=== PATIENT | male | born 1995 | race Caucasian/White ===

== ENCOUNTER 2021-09-19 19:31 | Inpatient (IN) ==
[2021-09-19] MEDS ORDERED: oxyCODONE/Acetamin 5/325 mg TAB PO PRN (22:40)
[2021-09-19] MEDS ORDERED: Ondansetron 4 mg VIAL 2 MG/ML 2 ml VIAL IV PRN (22:40)
[2021-09-19 23:52] LABS: Rapid COVID-19 Molecular Undetected (Undetected)
[2021-09-21] MEDS ORDERED: Polyethylene Glycol 3350 17 GM PACKET PO PRN (07:42)
[2021-09-24 08:46] LABS: Rapid COVID-19 Molecular Undetected (Undetected)
[2021-09-26 15:21] VITALS: BP 109/66
== END 2021-09-26 17:00 | disposition home or self-care (01) | DRG 201 ==
LOC: EDHOLD 19:31 → ED 19:31 → EDHOLD 09-20 00:34 → SSU 09-20 00:55
PROVIDERS: ADMIT Surgery; ATTEND Surgery